=== PATIENT | female | born 1980 | race African-American/Black ===

== ENCOUNTER 2017-01-06 14:53 | Emergency (ER) | payer MEDICAID ==
[~2017-01-06] VITALS: Ht 167.6 cm; Wt 84.8 kg
[2017-01-06 15:15] VITALS: BP 119/86; PULSE 121; RESP 20; TEMP 97.8; O2SAT 99
--- NOTE | 2017-01-06 17:03 | NUR ---
BROUGHT BACK TO BED #1 AND REPORT GIVEN TO GERONIMO
[2017-01-06] MEDS ORDERED: INSU100V (17:29)
[2017-01-06] MEDS ORDERED: NEU300 PO (17:29)
[2017-01-06] MEDS ORDERED: HYDR4TAB57 PO (17:29)
[2017-01-06] MEDS ORDERED: FOLI-43 PO (17:29)
[2017-01-06] MEDS ORDERED: BEN50 PO (17:29)
[2017-01-06] MEDS ORDERED: INSU100V9 SUBCUT (17:29)
[2017-01-06] MEDS ORDERED: HYDR500C2 PO (17:29)
[2017-01-06] MEDS ORDERED: RIVA20TA PO (17:29)
--- NOTE | 2017-01-06 17:29 | NUR ---
PATIENT WAS BROUGHT TO BED 1 WITH COMPLAINTS OF GENERALIZED BODY PAIN. VITAL SIGNS WERE TAKEN AND 117/83, 114, 93%, 97.3 AND 19. PATIENT IS RESTING IN BED WAITING FOR MD TO SEE HER. PATIENT IS ALERT AND ORIENTED
[2017-01-06] MEDS ORDERED: HYDROmorphone 1 MG INJ. 1 MG/ML AMPUL IM ONE (17:45)
[2017-01-06] MEDS ORDERED: ONDANSETRON 4 MG ODT TAB PO ONE (17:45)
[2017-01-06] MEDS ORDERED: DIPHENHYDRAMINE INJ 50 MG/ML VIAL IM ONE (17:45)
--- NOTE | 2017-01-06 17:51 | NUR ---
EXPLAINED TO PT THAT WE NEED TO SEE HER RIDE PRIOR TO GET MEDICATION. PT STATES SHE WANTED TO STEP OUTSIDE TO CALL HER RIDE. AWAITING RIDE ARRIVAL
--- NOTE | 2017-01-06 17:52 | NUR ---
PATIENT WAS INFORMED THAT WE NEED TO SEE HER RIDE BEFORE GIVING HER MEDICAITONS AND THE PATIENT WENT OUTSIDE TO SEE IF HER RIDE WAS STILL HERE AND THEN MADE A PHONE CALL ON HER CELL OUTSIDE. ANALI FOR THE PATIENT TO RETURN TO THE BED.
--- NOTE | 2017-01-06 18:20 | NUR ---
PT STATES THAT SHE WILL NOT DRIVE HOME, SHE WILL CALL AN UBER OR TAXI. DR ISRAEL AWARE
--- NOTE | 2017-01-06 18:53 | NUR ---
PATIENT WAS GIVEN DILAUDID, BENADRYL AND ZOFRAN AND PATIENT STATED THAT PAIN HAS DECREASED. VITAL SIGN WERE TAKEN AND WERE 118/60, 65, 95%, 17 AND 97.5. PATIENT IS RESTING COMFORTABLY AT THIS TIME.
[2017-01-06 18:56] VITALS: BP 118/60; PULSE 65; RESP 17; TEMP 97.5; O2SAT 95
--- NOTE | 2017-01-06 19:03 | NUR ---
Walked into room to discharge patient, no where to be found. Pt left without notifying staff. MD Mcgraw made aware of patient eloping.
== END 2017-01-06 19:03 | disposition left against medical advice (07) ==
LOC: SED 14:53
DX: D57.00 Hb-SS disease with crisis, unspecified (principal); Z53.20 Procedure and treatment not carried out because of patient's decision for unspecified reasons; Z88.0 Allergy status to penicillin; Z88.6 Allergy status to analgesic agent; Z88.1 Allergy status to other antibiotic agents; Z86.59 Personal history of other mental and behavioral disorders
CPT/HCPCS: 96372; 99284; J1170; J1200; Q0162

== ENCOUNTER 2017-01-07 07:24 | Inpatient (IN) | payer MEDICAID ==
[~2017-01-07] VITALS: Ht 167.6 cm; Wt 84.8 kg
[~2017-01-07 07:24] MED LIST: BEN50 PO; FOLI-43 PO; HYDR4TAB57 PO; HYDR500C2 PO; INSU100V; INSU100V9 SUBCUT; NEU300 PO; RIVA20TA PO
[2017-01-07 07:25] VITALS: BP 122/85; PULSE 107; RESP 16; TEMP 96.7; O2SAT 100
--- NOTE | 2017-01-07 07:25 | NUR ---
Patient to ER bed 8 to gown for evaluation. Side rails up. Report given to elsie ambrose.
--- NOTE | 2017-01-07 07:45 | NUR ---
ER Dr. Cartagena at bedside examining patient.
--- NOTE | 2017-01-07 07:46 | NUR ---
Pt presents to ED c/o generalized body pain worse in back. Pt has multiple visits to various EDs for same complaint. Pt has no apparent distress noted at this time.
[2017-01-07] MEDS ORDERED: NACL 0.9% 1,000 ML IV ONE (07:51)
[2017-01-07] MEDS ORDERED: ONDANSETRON HCL 4 MG/2 ML VIAL IVP ONE (08:00)
[2017-01-07] MEDS ORDERED: HYDROmorphone 1 MG INJ. 1 MG/ML AMPUL IVP ONE (08:00)
--- NOTE | 2017-01-07 08:00 | NUR ---
Attempting to establish IV access. Pt has scarring in all areas of access. Pt h/o pulmonaryHTN, IDDM
--- NOTE | 2017-01-07 08:40 | NUR ---
Used vascular US to attempt upper extremity IV access. All potiential venous access sites apear fibrotic, there are potiential sites for IV access.
--- NOTE | 2017-01-07 09:00 | NUR ---
Pt medicated IM unable to gain access.
[2017-01-07 09:08] LABS: BILIRUBIN,URINE NEGATIVE (NEGATIVE); BLOOD, URINE NEGATIVE (NEGATIVE); CLARITY/URINE CLEAR (CLEAR); COLOR,URINE YELLOW (YELLOW); GLUCOSE,URINE NEGATIVE (NEGATIVE); KETONES,URINE NEGATIVE (NEGATIVE); LEUKOCYTE ESTERASE ,URINE NEGATIVE (NEGATIVE); NITRITE, URINE NEGATIVE (NEGATIVE); PH,URINE 6.5 (5.0-8.0); PROTEIN URINE NEGATIVE (NEGATIVE); UROBILINOGEN,URINE 0.2 (0.2-1.0)
[2017-01-07] MEDS ORDERED: ONDANSETRON HCL 4 MG/2 ML VIAL IM ONE (09:15)
[2017-01-07] MEDS ORDERED: HYDROmorphone 2 MG/ML VIAL IM ONE (09:15)
[2017-01-07 09:40] LABS: BASOPHILS # (AUTO) 0.1 K/uL (0.0-0.2); BASOPHILS % (AUTO) 3.2 % (0.0-2.0); EOSINOPHILS # (AUTO) 0.1 K/uL (0.0-0.4); HEMATOCRIT 31.1 % (36-48); HEMOGLOBIN 10.3 g/dL (12.0-16.0); LYMPHOCYTES # (AUTO) 1.4 K/uL (1.0-5.5); LYMPHOCYTES % (AUTO) 40.1 % (20.5-51.5); MEAN CORPUSCULAR HEMOGLOBIN 25 pg (27-31); MEAN CORPUSCULAR HGB CONC 33 % (32-36); MEAN CORPUSCULAR VOLUME 75 fL (79.0-98.0); MONOCYTES # (AUTO) 0.4 K/uL (0.0-1.0); MONOCYTES % (AUTO) 11.1 % (1.7-9.3); NEUTROPHILS # (AUTO) 1.5 K/uL (1.8-7.7); NEUTROPHILS % (AUTO) 43.6 % (40.0-70.0); PLATELET COUNT (AUTO) 152 K/uL (130-430); RED BLOOD CELL COUNT(AUTO) 4.14 MIL/uL (4.2-6.2); RED CELL DISTRIBUTION WIDTH 19.6 % (9.0-15.0); WHITE BLOOD COUNT (AUTO) 3.5 K/uL (4.8-10.8)
[2017-01-07 10:00] LABS: CALCIUM 8.8 mg/dL (8.4-11.0); CREATININE 0.91 mg/dL (0.55-1.30)
[2017-01-07 10:05] LABS: ALBUMIN 3.2 g/dL (3.4-4.8); TOTAL BILIRUBIN 0.2 mg/dL (0.0-1.0)
[2017-01-07] MEDS ORDERED: ACETAMINOPHEN 325 MG TABLET PO PRN ×2 (10:30→15:30)
[2017-01-07] MEDS ORDERED: PANTOPRAZOLE SODIUM 40 MG TAB PO ONE ×2 (10:45→16:00)
--- NOTE | 2017-01-07 10:50 | NUR ---
Patient will be admitted to care of . Admitted to TELEMETRY unit. Will go to room 100A. Summary report printed. Report given to ADMISSION RN.
--- NOTE | 2017-01-07 10:50 | NUR ---
Note tushar in EDM - 01/07/17 at 1113 by BLANCHE Patient will be admitted to care of []. Admitted to [] unit. Will go to room []. Belongings list completed. Summary report printed. Report given to [].
--- NOTE | 2017-01-07 10:50 | NUR ---
ADMIT NOTE Received pt from ER to the floor with a diagnosis of sickle cell disease pain. Admission process initiated. Patient oriented to pain management, safety and call light-teach back done.
[2017-01-07 10:54] VITALS: BP 127/84; PULSE 100; RESP 20; TEMP 98; O2SAT 100
[2017-01-07] MEDS: HYDROmorphone 2 MG/ML VIAL IM PRN ×2 (11:33→17:32)
--- NOTE | 2017-01-07 11:35 | NUR ---
NOTE REC'D PT FROM ADMIT KIERAN CHIU. PT RESTING IN BED. NO SOB/RESP DISTRESS NOTED. PAIN INCREASING PER PT. PT NOT IN THE SYSTEM AT THIS TIME. NOTIFIED PT THAT ONCE HER NAME IS IN THE SYSTEM PAIN MEDICATION IM WILL BIT GIVEN. PT HAS NO IV/PICC ACCESS AT THIS TIME. COMPLETION OF ADMISSION TO BE DONE. CALL LIGHT WITHIN REACH.
[2017-01-07 12:00] VITALS: BP 127/84; PULSE 80; RESP 18; TEMP 98; O2SAT 99
--- NOTE | 2017-01-07 14:00 | NUR ---
NOTE PT ATE LUNCH. APPETITE WAS GOOD AT THIS TIME. PT WAS GIVEN PAIN IM MEDICATION AND PAIN TOLERABLE AT THIS TIME. DR VALDEZ WAS CALLED AT NOON, WILL BE IN THIS AFTERNOON TO DO ASSESSMENT OF PT AND WRITE ORDERS. PT RESTING IN BED AT THIS TIME. NO NEEDS NOTED. PT HAS TELE UNIT ATTACHED SINCE ADMISSION TO FLOOR. PT RUNNING SR AT THIS TIME. CALL LIGHT WITHIN REACH.
[2017-01-07 15:20] VITALS: BP 112/68; PULSE 90; RESP 16; TEMP 99.1; O2SAT 100
[2017-01-07] MEDS ORDERED: DIPHENHYDRAMINE HCL 50 MG CAPSULE PO SCH ×2 (15:30)
[2017-01-07] MEDS ORDERED: HYDROcodone/ACETAMIN 10-325 MG TAB PO PRN (15:30)
[2017-01-07] MEDS ORDERED: DIPHENHYDRAMINE HCL 50 MG CAPSULE PO PRN (15:45)
[2017-01-07] MEDS ORDERED: INSULIN ASPART 100 UNITS/ML, 10 ML VIAL (NovoLOG) SUBCUT PRN (15:45)
--- NOTE | 2017-01-07 15:45 | NUR ---
NOTE DR VALDEZ WAS IN PT'S ROOM 1450 TO 1550 EXPLAINING TO PT THE TOXICITY OF TAKING SO MUCH DILAUDID 8MG PO Q3' AND BENADRYL AND NORCO PO OFTEN WELL. PT STATED SHE UNDERSTOOD. PT REQUESTED TO SIGN THE FORM OF NO SMOKING, STATING SHE NEEDS TO GO OUT THE HOSPITAL TO SMOKE SHE FEELS ANXIOUS AND RESTLESS. DR VALDEZ DC'D TELE MONITORING AND PT NOW MED/SURG PT. 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 PT OFF THE FLOOR WITH HER CIGARETTES AND ICED COKE. PT AMBULATING WITH STEADY GAIT.
--- NOTE | 2017-01-07 16:35 | NUR ---
NOTE PT BACK TO ROOM AND RESTING IN BED. NO NEEDS NOTED AT THIS TIME. CALL LIGHT WITHIN REACH.
--- NOTE | 2017-01-07 18:20 | NUR ---
NOTE PT REC'D HER DILAUDID 2MG IM AT 1730 SCHEDULED. PT THEN WENT OUT TO SMOKE CIGARETTE AND CAME BACK TO ROOM AND ATE HER DINNER. PT CAME TO NURSES STATION AND STATED SHE IS GOING TO SIGN AMA NOW AND THAT HER IS WAITING FOR HER OUTSIDE IN THE CAR. PT DRESSED IN STREET CLOTHES AND ALL BELONGINGS PACKED AND PT SIGNED AMA FORM AND WALKED OFF THE FLOOR TO THE FRONT OF THE HOSPITAL. PT HAD NO SOB/RESP DISTRESS OR PAIN/DISCOMFORT NOTED AT THIS TIME. DR CORDERO CALLED AND NOTIFIED THAT PT SIGNED OUT AMA AT THIS TIME. PT HAD NO IV OR TELE UNIT.
[2017-01-07] MEDS ORDERED: INSULIN GLARGINE 100 UNITS/ML 10 ML VIAL SUBCUT SCH ×2 (21:00)
[2017-01-07] MEDS ORDERED: GABAPENTIN 300 MG CAPSULE PO SCH (21:00)
[2017-01-08] MEDS ORDERED: FOLIC ACID 1 MG TABLET PO SCH (09:00)
[2017-01-08] MEDS ORDERED: RIVAROXABAN 10 MG TABLET PO SCH (09:00)
[2017-01-08] MEDS ORDERED: HYDROXYUREA 500 MG CAPSULE (HYDREA) PO SCH (09:00)
[2017-01-08] MEDS ORDERED: PANTOPRAZOLE SODIUM 40 MG TAB PO SCH (09:00)
== END 2017-01-07 18:10 | disposition left against medical advice (07) | DRG 351 ==
LOC: SED 07:24 → STU 10:50 → SMU 15:49
PROVIDERS: ADMIT Internal Medicine; ATTEND Internal Medicine
DX: M79.606 Pain in leg, unspecified (principal); E11.40 Type 2 diabetes mellitus with diabetic neuropathy, unspecified; F03.90 Unspecified dementia, unspecified severity, without behavioral disturbance, psychotic disturbance, mood disturbance, and anxiety; G89.4 Chronic pain syndrome; D57.1 Sickle-cell disease without crisis; Z53.21 Procedure and treatment not carried out due to patient leaving prior to being seen by health care provider; Z88.6 Allergy status to analgesic agent; Z88.0 Allergy status to penicillin; Z79.01 Long term (current) use of anticoagulants; Z79.899 Other long term (current) drug therapy; Z86.718 Personal history of other venous thrombosis and embolism; Z86.711 Personal history of pulmonary embolism
CPT/HCPCS: 36415; 80053; 81003; 82962; 83690-TC; 84484; 85025; 85044-TC; 93005; 96372; 99285; J1170; J1815; J2405; J7030